=== PATIENT | male | born 1950 | race Caucasian/White ===

== ENCOUNTER 2020-03-24 15:56 | Outpatient (CLI) | payer MEDICARE, OTHER, SELFPAY ==
--- NOTE | ~2020-03-24 | XR_ITS ---
XR abdomen/kub 1V 03/24/2020 16:12 INDICATION: Hematuria TECHNIQUE: KUB COMPARISON: None FINDINGS: Bowel gas pattern is normal. There is no evidence of free air, mass, organomegaly, ascites or obstruction. No abnormal calculi are seen. There is a right pelvic phlebolith. Lung bases are un remarkable. The bones appear intact. IMPRESSION: 1: No acute abdominal abnormality identified. Reviewed, dictated and finalized at location B. [employer]
== END 2020-03-24 15:57 ==
LOC: MICIMG 15:58
PROVIDERS: Visit Provider Physician Assistant
DX: R31.9 Hematuria, unspecified (principal)
CPT/HCPCS: 74018

== ENCOUNTER 2022-01-03 19:37 | Emergency (ER) | payer MEDICARE, SELFPAY ==
--- NOTE | ~2022-01-03 | CT_ITS ---
EXAMINATION: CT brain wo con DATE: 01/03/2022 20:19 INDICATION: Altered mental status. Uncontrollable tremors. TECHNIQUE: Computed tomography (CT) of the head was performed without intravenous contrast. Sagittal and coronal reconstructions were performed. The mA was adjusted according to patient size. Iterative reconstruction technique was employed. The dose-length product was 681.00 mGy-cm. COMPARISON: None FINDINGS: No acute intracranial hemorrhage, acute infarction or abnormal extra axial fluid collection. There is mild scattered white matter hypoattenuation consistent with chronic small vessel ischemic disease. Ventricles are normal and symmetric. No mass/mass effect. Changes of bilateral intraocular lens repla cement. The orbits, paranasal sinuses and mastoid air cells are normal. There is some debris/cerumen at the bilateral external auditory canals, right greater than left. IMPRESSION: 1. Mild scattered white matter hypoattenuation consistent with chronic small vessel ischemic disease. No acute intracranial process. Reviewed, dictated and finalized at location A. T [employer] IMPRESSION: 1. Mild scattered white matter hypoattenuation consistent with chronic small ve ssel ischemic disease. No acute intracranial process.
--- NOTE | ~2022-01-03 | XR_ITS ---
EXAMINATION: XR chest 1V portable DATE: 01/03/2022 20:23 INDICATION: Altered mental status TECHNIQUE: frontal view of the chest was obtained. COMPARISON: None FINDINGS: Mildly decreased lung volumes with mild streaky bibasilar opacities and favor atelectasis over pneumo atfab. No pulmonary edema, pleural effusion or pneumothorax. The cardiomediastinal silhouette is normal . IMPRESSION: 1. Moderately decreased lung volumes with mild streaky bibasilar atelectasis versus less likely pneum onia. Reviewed, dictated and finalized at location A. [employer] SPECIALIST IMPRESSION: 1. Moderately decreased lung volumes with mild streaky bibasilar atelectasis ve rsus less likely pneumonia.
[2022-01-03 19:35] VITALS: BP 147/74; PULSE 105; RESP 18; TEMP 36.4; O2SAT 100
--- NOTE | 2022-01-03 19:47 | ECG_ITS ---
Measurements Intervals [place] Rate: 88 P: 62 WI: 179 QRS: -48 QRSD: 119 T: 47 QT: 366 QTc: 445 Interpretive Statements SINUS RHYTHM INCOMPLETE RIGHT BUNDLE BRANCH BLOCK LEFT ANTERIOR FASCICULAR BLOCK BASELINE ARTIFACT- I, II, III, AVR, AVF ABNORMAL ECG NO PREVIOUS ECG AVAILABLE FOR COMPARISON Electronically Signed On 01-03-2022 20:58:37 DENTAL PROSTHETIST by Augusto Alcazar D.O.
--- NOTE | 2022-01-03 19:49 | ED.GENADULT ---
HPI - General Adult General Chief complaint: Neuro Symptoms/Deficit Stated complaint: WORSENING TREMMORS Time Seen by Provider: 01/03/22 19:40 Source: RN notes reviewed History of Present Illness HPI narrative: Patient presents to emergency department from home via EMS for tremors. Patient states that he has been having worsening tremors over the past 1 year. States the tremors are stuck in his bilateral arms he states this evening and thinks he had to be in the car and he began to have worse shaking in his arms and his eyes rolled back in the back of the head meditated back inside the states he never lost consciousness at that time patient then had 2 other episodes similar to this and EMS was called he denies any headaches he denies any recent illness he denies any chest pain shortness of breath numbness or weakness to the EXTR or any other symptoms he is scheduled to see neurology at the [facility] in 2 weeks but has had no previous neurology evaluation. Per patient and family patient had no loss of bowel or bladder Related Data Home Medications Medication Instructions Recorded Confirmed tamsulosin 0.4 mg capsule (Flomax) 0.4 mg PO DAILY 06/28/19 fluoxetine 10 mg capsule 20 mg PO DAILY 03/24/20 mirabegron 25 mg tablet,extended 25 mg PO DAILY 03/24/20 release 24 hr (Myrbetriq) ropinirole 0.5 mg tablet 0.5 mg PO QPM 03/24/20 simvastatin 40 mg tablet 20 mg PO DAILY 03/24/20 Allergies Allergy/AdvReac Type Severity Reaction Status Date / Time aspirin Allergy Unknown Unknown Verified 01/03/22 19:42 codeine Allergy Unknown violent Verified 01/03/22 19:42 tendencies Review of Systems Review of Systems: Gen.: Denies fevers or chills Eyes: Denies eye pain or visual change ENT: Denies congestion Respiratory: Denies shortness of breath or cough CV: Denies chest pain or palpitations GI: Denies abdominal pain nausea, emesis or diarrhea Musculoskeletal: Denies back pain or muscle pain Neuro: See HPI Skin: Denies rash Except as documented, all other systems reviewed and negative [facility] Past Medical History Medical History BPH (benign prostatic hyperplasia) Mixed hyperlipidemia Family History Family History Other Family history of malignant neoplasm Social History Social History Smoking status: Never smoker Second hand tobacco smoke exposure: No Alcohol intake: never Exam Narrative: APPEARANCE: No acute distress, nontoxic, resting in bed HEENT: Normocephalic, atraumatic, OMM, tongue normal in appearance no abrasions EYES: PERRL, EOMI NECK: Supple, nontender, full range of motion without pain, no meningismus RESPIRATORY: No respiratory distress, clear to auscultation bilaterally with no rhonchi wheezing or rales CARDIOVASCULAR: RRR s murmur ABDOMINAL: Soft, nontender, nondistended MUSCULOSKELETAL: Moves all extremities. No clubbing, cyanosis or edema. NEURO: A and O ?3, following commands, speech normal, cranial nerves II through XII grossly intact,muscle strength 5 out of 5 bilateral upper and lower extremities no pronator drift, intermittent tremors while the patient is talking to me in bed there is no tremors with intentional movements tremors are shaking in the bilateral hands SKIN:: Warm, dry. Normal Color PSYCHIATRIC: Normal affect/mood Course Course Emergency Course: Patient is remained awake and alert throughout stay in ED Dr. Colbert for neurology presentation work-up at this time agrees with plan for discharge recommend patient follow with neurology for EEG and MRI as an outpatient at this time does not recommend any seizure medications as no definitive seizures noted Discussed with patient results of workup and diagnosis. Discussed need for follow-up with primary care, proper use of medication, and reasons to return to the emergency de
[2022-01-03 20:11] LABS: Basophils Absolute Auto 0.1 K/mm3 (0.0-0.1); Basophils Percent Auto 0.7 % (0.2-1.2); Eosinophils Absolute Auto 0.2 K/mm3 (0-0.3); Eosinophils Percent Auto 2.1 % (0-4.4); Hematocrit 43.5 % (42.0-52.0); Hemoglobin 13.9 g/dL (14.0-18.0); Immature Granulocyte Absolute 0.03 K/mm3 (0.00-0.031); Immature Granulocyte Percent A 0.3 % (0-0.5); Lymphocytes Absolute Auto 2.34 K/mm3 (0.9-3.2); Lymphocytes Percent Auto 24.9 % (18.3-44.2); Mean Corpuscular Hemoglobin 30.4 pg (26-34); Mean Corpuscular Volume 95.2 fl (80-100); Mean Platelet Volume 8.5 fl (7.4-10.4); Monocytes Absolute Auto 0.9 K/mm3 (0.1-0.6); Monocytes Percent Auto 9.2 % (2.6-8.5); Neutrophils Absolute Auto 5.9 K/mm3 (1.3-6.7); Neutrophils Percent Auto 62.8 % (45.5-73.1); Platelet Count Result 300 k/mm3 (150-375); Red Blood Count 4.57 M/mm3 (4.6-6.20); Red Cell Distribution Width 13.4 % (11.5-14.5); White Blood Count 9.4 K/mm3 (4.5-10.0)
[2022-01-03 20:21] LABS: Prothrombin Time 13.2 Seconds (11.1-14.7)
[2022-01-03 20:22] LABS: Alanine Aminotransferase 20 U/L (6-50); Albumin Level 4.3 g/dL (3.5-5.1); Alkaline Phosphatase 72 U/L (38-126); Anion Gap 15 mmol/L (8-16); Aspartate Amino Transferase 24 U/L (17-59); Bilirubin,Total 0.6 mg/dL (0.2-1.3); Blood Urea Nitrogen 15 mg/dL (9-20); Calcium 8.8 mg/dL (8.4-10.2); Carbon Dioxide 23 mmol/L (22-30); Chloride 96 mmol/L (98-107); Creatine Kinase 116 U/L (55-170); Estimated CRCL calculation 48 ml/min; Estimated Glomerular Filt Rate 54; Glucose 154 mg/dL (65-110); Magnesium 2.2 mg/dL (1.6-2.3); Partial Thromboplastin Time 32.4 SECONDS (22.3-36.8); Potassium 3.6 mmol/L (3.4-5.0); Sodium 134 mmol/L (137-145)
--- NOTE | 2022-01-03 20:45 | PC.NURSE ---
Talked to Alexa in lab at 20:45 to add on Trop I baseline
[2022-01-03 20:55] LABS: Appearance Urine Clear (Clear); Bilirubin Urine Negative (Negative); Blood Urine Negative (Negative); Color Urine Yellow (Yellow); Glucose Urine UA Negative (Negative); Ketones Urine Negative (Negative); Leukocyte Esterase Ur Negative LEU/UL (Negative); Nitrate Urine Negative (Negative); Protein Urine Negative (Negative); Specific Grav Ur 1.015 (1.001-1.035); Urobilinogen Urine 0.2 mg/dL (<2.0)
[2022-01-03 21:02] VITALS: BP 155/89; PULSE 88; RESP 18; O2SAT 100
[2022-01-03 21:03] LABS: Add Urine Microscopic? NO
[2022-01-03 21:07] LABS: Troponin I < 0.012 ng/mL (0.000-0.034)
[2022-01-03 23:02] VITALS: BP 130/81; PULSE 68; RESP 16; O2SAT 100
== END 2022-01-03 23:03 | disposition home or self-care (01) ==
PROVIDERS: Emergency Provider Emergency Medicine; PCP Family Medicine
DX: G25.0 Essential tremor (principal); N40.0 Benign prostatic hyperplasia without lower urinary tract symptoms; E78.2 Mixed hyperlipidemia; I45.2 Bifascicular block; R91.8 Other nonspecific abnormal finding of lung field
CPT/HCPCS: 36415; 70450; 71045; 80053; 81003; 82550; 83735; 84484; 85025; 85610; 85730; 93005; 99284